=== PATIENT | male | born 2000 | race Caucasian/White ===

== ENCOUNTER 2022-12-19 18:19 | Emergency (ER) | payer MEDICAID ==
[~2022-12-19] VITALS: Ht 188 cm; Wt 136.2 kg
[2022-12-19 18:33] VITALS: BP 150/94
[2022-12-19] MEDS ORDERED: IBUP800T27 PO (18:51)
== END 2022-12-19 19:07 | disposition home or self-care (01) ==
LOC: ER 18:19
DX: G44.209 Tension-type headache, unspecified, not intractable (principal)

== ENCOUNTER 2024-01-12 19:50 | Emergency (ER) | payer MEDICAID ==
[~2024-01-12] VITALS: Ht 188 cm; Wt 142.4 kg
[~2024-01-12 19:50] MED LIST: IBUP-1456 PO
[2024-01-12 21:55] LABS: Urine Bacteria None Seen /hpf (None Seen)
[2024-01-12 22:04] LABS: Basophils # (auto) 0.1 10 ^3/uL (0-0.2); Basophils % (auto) 0.5 % (0.0-2.0); Eosinophils # (auto) 0.2 10 ^3/uL (0-0.8); Eosinophils % (auto) 1.3 % (0.0-7.0); Hematocrit 48.3 % (41.0-53.0); Lymphocytes # (auto) 2.3 10 ^3/uL (0.4-5.4); Lymphocytes % (auto) 16.9 % (10.0-50.0); Mean Corpuscular Hemoglobin 28.1 pg (28.0-32.0); Mean Corpuscular Hgb Conc. 33.2 g/dL (32.0-36.0); Mean Corpuscular Volume 84.5 fL (80.0-100.0); Monocytes # (auto) 0.9 10 ^3/uL (0-1.3); Monocytes % (auto) 6.8 % (0.0-12.0); Neutrophils # (auto) 10.1 10 ^3/uL (1.6-8.6); Neutrophils % (auto) 74.5 % (37.0-80.0); Nucleated Red Blood Cells % 0.1 %; Red Blood Cells 5.72 10^6/uL (4.5-5.90); Red Cell Distribution Width 14.1 % (11.8-14.3); White Blood Cell 13.5 10^3/uL (4.4-10.8)
[2024-01-12] MEDS: cloNIDine HCL 0.1 MG TAB PO ONE (22:08)
[2024-01-12 22:09] LABS: Urine Blood Negative /uL (Negative); Urine Clarity Clear (Clear); Urine Color Yellow (Yellow); Urine Protein, UAD TRACE (Negative); Urine Specific Gravity 1.027 (1.001-1.035); Urine Urobilinogen Normal (Negative); Urine WBC 1 /hpf (0 - 3)
[2024-01-12 22:11] LABS: Chloride 107 mmol/L (98-107); Potassium 3.7 mmol/L (3.5-5.1); Sodium 138 mmol/L (136-145)
[2024-01-12 22:12] LABS: Anion Gap 6 (5-15); Carbon Dioxide 25 mmol/L (20-30)
[2024-01-12 22:17] LABS: Blood Urea Nitrogen 11 mg/dL (9-23); Glucose 111 mg/dL (74-106)
[2024-01-13] MEDS ORDERED: CLON0.2T PO (00:42)
[2024-01-13 01:36] VITALS: BP 152/91; PULSE 99; RESP 14; TEMP 99; O2SAT 99
== END 2024-01-13 01:28 | disposition home or self-care (01) ==
LOC: ER 19:50
DX: R03.0 Elevated blood-pressure reading, without diagnosis of hypertension (principal); R51.9 Headache, unspecified; R94.31 Abnormal electrocardiogram [ECG] [EKG]; Z88.0 Allergy status to penicillin
CPT/HCPCS: 36415; 80048; 81001; 83605; 83880; 84484; 85025; 93005